=== PATIENT | female | born 1985 | race Caucasian/White ===

== ENCOUNTER → 2020-12-29 16:14 | Outpatient (CLI) | payer OTHER, SELFPAY ==
--- NOTE | ~2020-12-29 | MM_ITS ---
EXAMINATION: MM screening edna BI w ivon HISTORY: Screening mammogram TECHNIQUE: Craniocaudal and mediolateral oblique 3-D tomosynthesis images were obtained and synthetic 2-D images were generated. CAD analysis was submitted and interpreted. COMPARISON: No prior mammogram is available for comparison at this institution. BREAST PARENCHYMAL COMPOSITION: There are scattered areas of fibroglandular density. FINDINGS: Benign-appearing axillary tail lymph nodes. There is no evidence of suspicious mass, calcif ication, or architectural distortion to suggest malignancy in either breast. There has been no suspic ious interval change. IMPRESSION: 1. No mammographic evidence of malignancy. 2. Recommend routine screening mammography in one year. BI-RADS Category 2: Benign finding(s). Reviewed, dictated and finalized at location A.
== END ==
PROVIDERS: Visit Provider Surgery Plastic and Reconstructive Surgery
DX: Z12.31 Encounter for screening mammogram for malignant neoplasm of breast (principal)
CPT/HCPCS: 77063; 77067

== ENCOUNTER → 2021-02-26 02:56 | Outpatient (CLI) | payer OTHER, SELFPAY ==
[2021-02-26 19:24] LABS: SARS-CoV-2 RNA PCR Negative
== END ==
PROVIDERS: PCP Physician Assistant; Visit Provider Surgery Plastic and Reconstructive Surgery
DX: R68.89 Other general symptoms and signs (principal); Z20.822 Contact with and (suspected) exposure to COVID-19
CPT/HCPCS: C9803; U0003; U0005

== ENCOUNTER → 2021-06-11 02:47 | Outpatient (CLI) | payer OTHER, SELFPAY ==
[2021-06-11 11:30] LABS: SARS-CoV-2 RNA PCR Negative
== END ==
PROVIDERS: PCP Physician Assistant; Visit Provider Surgery Plastic and Reconstructive Surgery
DX: Z01.812 Encounter for preprocedural laboratory examination (principal); Z20.822 Contact with and (suspected) exposure to COVID-19
CPT/HCPCS: C9803; U0003; U0005

== ENCOUNTER 2021-06-14 01:00 | Day surgery (SDC) | payer OTHER, SELFPAY ==
[2021-06-05 14:03] VITALS: BMI 27.9
--- NOTE | 2021-06-05 14:13 | PC.NURSE ---
Report to the Outpatient Waiting Room, entrance under the green pavilion located off [facility], at time 0600 on date 06/14/21. OR Time: 0730. - You and your visitor will be asked a series of questions to screen for COVID 19 for your protection. - A mask is required within the hospital. One visitor will be allowed to accompany the patient into the hospital. Patients visitor will be instructed to remain with patient at all times or leave the building. We will allow the visitor to come back to the postoperative area when patient is ready. Preoperative COVID Testing Requirements: COVID TEST 06/11 AT 0730 No COVID Test needed if: (proof is required; if not received patient will have Rapid Test prior to entry) - Patient has received COVID Vaccine at least 14 days prior to procedure date or - Patient has positive COVID test result within last 90 days of surgery date. COVID Test needed if above criteria is not met If not COVID vaccinated a COVID test must be conducted within 72 hours of surgery and patient is asked to isolate self from time of testing until procedure. You will go to the [facility] for your COVID testing. The [facility] site is located at the corner of [address] [facility]. You will only be called if COVID results are positive and your surgeon may reschedule your elective surgery date. Patients may have clear liquids (water, carbonated beverages, clear teas, apple juice) until 3 hours prior to surgery with a maximum of 20 ounces. - No food from midnight until time of surgery Take the following medications with a SIP of water the morning of surgery: THYROID Medications to discontinue per physician: VITAMINS/SUPPLEMENTS Date to take last dose: 06/10/21 Please no make-up, nail salvadorean, hairspray, perfume, deodorant, or body powder the day of surgery. No jewelry (including any body piercings) or valuables the day of surgery, leave them at home. Please take a shower or bath the night before, or the morning of, surgery with an antibacterial soap. Wear comfortable, loose fitting clothing. - Jewelry must be removed prior to entering the operating room. Rings and piercings that are not removed may be cut off. - The hospital will not accept responsibility for valuables. - Please leave all valuables, including medications, at home the day of surgery. If you are going home after surgery, a licensed tank driver must drive you home. - NO public transportation without another adult. - We recommend that an adult stay with you for 24 hours following discharge. - We also recommend that you do not drive, make important decision, drink alcoholic beverages, or take any drugs that were not prescribed by your health care provider for at least 24 hours after your discharge time. Follow any additional instructions given to you from your surgeon. Telephone instructions given to JUAN MARTÍNEZ and asked if any additional questions and then verbalized understanding. Patient advised to call surgeon office or pre surgery nurse liaison [phone] if any additional questions.
[2021-06-14] VITALS (7 sets, daily range): BP systolic 115–128; BP diastolic 72–81; PULSE 73–102; RESP 10–20; TEMP 36.1–36.9; O2SAT 98–100
--- NOTE | 2021-06-14 06:01 | W.PM.PROC2 ---
Procedure Note - Detailed Date of Procedure 06/14/21 Pre-op Diagnosis Bilateral Breast Ptosis Post-op Diagnosis Same Procedure Performed Bilateral mastopexy with Galaflex Surgeon Boy Sharp MD Anesthesia General Findings Inverted T Superior medial pedicle Description of Procedure Preoperatively the risks, benefits, alternatives were discussed in extensive detail. I want her to be very realistic about the risks involved as well as expectations. I was very careful and aware to treat her as any other patient ensuring a complete thorough conversation and evaluation. I made sure answered all of her questions to her satisfaction. She voiced clear understanding. Consent obtained. She was marked in the preoperative holding area with her verification. She was taken to the operating room placed supine on operating room table. Anesthesia was provided by anesthesiology and she was prepped and draped in the standard sterile fashion. Surgical time-out was taken. Stab incisions were made tumescent completed with low volume of tumescent solution. Breast was tailor tacked into position and I placed her in a sitting position to verified my markings. Marked out the new nipple-areolar complex at 42 mm Based on preoperative markings, observations, and intraoperative measurements which were in full agreement. She was then placed supine. The nipple-areolar complex was marked at 42 mm. I de-epithelialized the pedicle. Made the remainder of the incisions and de-epithelialized the inferior pole of the breast which was going to be used for an auto augmentation flap. Slight volume adjustment of autoaugmentation flap to improve symmetry based on pre-operative analysis and discussion. Elevated the breast as necessary for exposure. Copiously irrigated with saline solution and verified strict hemostasis. I tailor tacked the auto augmentation flap to the chest wall using a 2-0 PDS. I then trimmed and tailor tacked the Galaflex to support the lower pole of the breast using a 2-0 Vicryl. I closed along the IMF using an 0 strata fix. Along the vertical pedicle using 2-0 PDS. I closed around the areola with 3-0 strata fix, the vertical with 3-0 Monocryl, and the IMF with 3-0 strata fix. Final closure was using running subcuticular 4-0 Monocryl and Steri-Strips. The end of the procedure she had good color and capillary refill. She was awoken taken to the PACU without difficulty. All instrument sponge counts were correct at the end of the case. Estimated Blood Loss 50 Drains No Packing No Pathology None sent Complications No immediate complications Condition Stable Disposition PACU
[2021-06-14 06:29] LABS: Urine Cotinine NEGATIVE
[2021-06-14] MEDS: LACTATED RINGERS 1,000 ML 30 ML IV CONT ×2 (06:30→10:28)
--- NOTE | 2021-06-14 07:03 | WPDHPUPDATE1 ---
History and Physical Update Update Date/Time: 06/14/21 07:03 History and Physical has been reviewed, including an updated exam of the patient. There are NO changes in the patient's condition. Risks, benefits, and alternatives have been discussed and questions answered. Patient agrees to proceed with procedure.
--- NOTE | 2021-06-14 07:12 | P.PNAN_ITS ---
Anes - Initial Pre Proc Eval Procedure: Operation Date: 06/14/21 07:30 Proposed Procedures p Bilateral Breast Mastopexy with Galaflex - Boy Sharp MD Date/Time: 06/14/21 07:12 Surgeon: Boy Sharp MD Pre Op Diagnosis: Bilateral Breast Ptosis Patient Data Age: 36 Gender: F Height: 1.55 m Weight: 67.13 kg Allergies Allergy/AdvReac Type Severity Reaction Status Date / Time No Known Allergies Allergy Verified 06/14/21 06:23 Home Medications Medication Instructions Recorded Confirmed Type cetirizine [Zyrtec] 10 mg PO DAILY 06/05/21 06/14/21 History multivitamin 1 tablet PO DAILY 06/05/21 06/14/21 History prasterone (dhea)-calcium carb 1 tablet PO HS 06/05/21 06/14/21 History [DHEA] progesterone micronized 150 mg PO HS 06/05/21 06/14/21 History thyroid (pork) [[place] Thyroid] 60 mg PO DAILY 06/05/21 06/14/21 History docusate sodium 100 mg capsule 100 mg PO DAILY #14 cap 06/12/21 06/14/21 Rx hydrocodone 5 mg-acetaminophen 325 1 tablet PO Q6H PRN #30 tablet 06/12/21 06/14/21 Rx mg tablet ondansetron 4 mg disintegrating 4 mg PO Q8H #30 tablet 06/12/21 06/14/21 Rx tablet Laboratory Tests 06/14/21 06:14 Cotinine Negative Patient hx anesthesia problems: post op nausea/vomiting Family hx anesthesia problems: none Results Review: All pre-operative results and documents have been reviewed as part of the pre-operative evaluation. [facility] Past Medical History Medical History Hypothyroid Family History Family History Father Hypertension Family history of gastrointestinal disorder Family history of elevated blood lipids Grandparent Hypertension Family history of elevated blood lipids Family history of alcoholism Family history of cardiovascular disease Family history of atrial fibrillation Mother Patient's mother is in good health Social History Social History Smoking status: Former smoker Alcohol intake: current Drinks per week: 2 Substance use: never Substance use type: does not use Living arrangements: with family Spiritual care concerns: No Anes - Eval Final PreProcedure Day of Procedure 06/14/21 07:12 Patient weight: overweight Heart: regular rate and rhythm Lungs: clear to auscultation Airway: Mallampati scale class II Neurological: alert and oriented Last oral intake: >/= 8 hours ASA classification: II Emergent: no Anesthetic plan: proceed Anesthesia type and monitoring: general LMA and standard monitoring Results Review: All pre-operative results and documents have been reviewed as part of the pre-operative evaluation. Informed Consent: The patient's anesthetic plan and its attendant risks and benefits were discussed with the patient/family/POA. Questions were solicited and answers provided to the satisfaction of the patient/family/POA.
[2021-06-14] MEDS: SCOPOLAMINE 1.5 MG PATCH TRANSDERM (07:16)
--- NOTE | 2021-06-14 07:18 | PM.IMHP ---
H&P: HPI History of Present Illness Date/Time: 06/14/21 07:18 She is here today for bilateral breast mastopexy with Galaflex. She has had the opportunity to review consents. She would like proceed. Chief Complaint: Breast ptosis Review of Systems Review of Systems: All systems reviewed & are unremarkable except as noted in HPI and below PMFSH Past Medical History Medical History Hypothyroid Family History Family History Father Hypertension Family history of gastrointestinal disorder Family history of elevated blood lipids Grandparent Hypertension Family history of elevated blood lipids Family history of alcoholism Family history of cardiovascular disease Family history of atrial fibrillation Mother Patient's mother is in good health Social History Social History Smoking status: Former smoker Alcohol intake: current Drinks per week: 2 Substance use: never Substance use type: does not use Living arrangements: with family Spiritual care concerns: No Meds Home Medications and Allergies Home Medications Medication Instructions Recorded Confirmed Type cetirizine [Zyrtec] 10 mg PO DAILY 06/05/21 06/14/21 History multivitamin 1 tablet PO DAILY 06/05/21 06/14/21 History prasterone (dhea)-calcium carb 1 tablet PO HS 06/05/21 06/14/21 History [DHEA] progesterone micronized 150 mg PO HS 06/05/21 06/14/21 History thyroid (pork) [[place] Thyroid] 60 mg PO DAILY 06/05/21 06/14/21 History docusate sodium 100 mg capsule 100 mg PO DAILY #14 cap 06/12/21 06/14/21 Rx hydrocodone 5 mg-acetaminophen 325 1 tablet PO Q6H PRN #30 tablet 06/12/21 06/14/21 Rx mg tablet ondansetron 4 mg disintegrating 4 mg PO Q8H #30 tablet 06/12/21 06/14/21 Rx tablet Allergies Allergy/AdvReac Type Severity Reaction Status Date / Time No Known Allergies Allergy Verified 06/14/21 06:23 Exam Narrative: Bilateral breast ptosis. Const: General: comfortable, no acute distress, alert and awake; No acute distress Orientation/consciousness: oriented to person HENMT: Head: normal to inspection Ears: external ears normal General nose exam: Normal external nose present Face and sinus: normal facial exam Eyes: General: appearance normal, both eyes and all related structures Periorbital: periorbital findings normal Eyelids: eyelids normal Conjunctivae: conjunctivae normal Neck: Neck: normal visual inspection Chest: Chest palpation & inspection: normal inspection of the chest Resp: Effort & Inspection: normal respiratory effort and able to speak in complete sentences GI: Inspection: normal to inspection Neuro: General: oriented to person Psych: Appearance: grossly normal Mental Status: mental status grossly normal Assessment and Plan Assessment and plan (1) Breast ptosis: Code(s): N64.81 - Ptosis of breast Status: Acute Assessment and Plan: She would like proceed with bilateral breast mastopexy with Galaflex. Again today the risks, benefits, alternatives were discussed in extensive detail. I want her and her be very realistic about the risks involved as well as expectations. Made sure answered all of their questions to their satisfaction. Consent obtained. They would like proceed.
[2021-06-14] MEDS: ceFAZolin 2 GM/D5W 50 ML 2 GM/50 ML BAG IVPB (07:28)
[2021-06-14] MEDS: TRANEXAMIC ACID 1,000MG/ISO100 1,000 MG/100 ML BAG 200 MG IVPB (07:41)
[2021-06-14] MEDS: NACL 0.9% IRRIG POUR BOTTLE 900 ML, GENTAMICIN SULFATE INJ 160 MG, ceFAZolin 2 GM, POVI... IRRIGATION (07:57)
[2021-06-14] MEDS: BUPIVACAINE HCL 0.25% PF 30 ML VIAL INFILTRATE (07:58)
[2021-06-14] MEDS: LIDO 1%/EPINEPHRINE 1:100,000 50 ML VIAL INFILTRATE (07:59)
[2021-06-14] MEDS: oxyCODONE HCL (*CRX) 5 MG TAB IR PO (11:23)
== END 2021-06-14 12:06 | disposition home or self-care (01) ==
PROVIDERS: PCP Physician Assistant; Visit Provider Surgery Plastic and Reconstructive Surgery
PROC: (CPT 19316; principal; 2021-06-14 07:30)
DX: Z41.1 Encounter for cosmetic surgery (principal); N64.81 Ptosis of breast; E03.9 Hypothyroidism, unspecified; Z79.899 Other long term (current) drug therapy; Z87.891 Personal history of nicotine dependence
CPT/HCPCS: 19316; 15777 ×2; 80307; A9270; J0690; J1100; J1170; J1580; J2250; J2704; J2710; J3010; J7120

== ENCOUNTER → 2021-12-07 16:54 | Outpatient (CLI) | payer OTHER, SELFPAY ==
--- NOTE | ~2021-12-07 | MR_ITS ---
EXAMINATION: MR shoulder LT wo con DATE: 12/07/2021 17:37 INDICATION: Left shoulder pain. TECHNIQUE: Magnetic resonance imaging (MRI) of the left shoulder was performed without intravenous co ntrast. Sequences included axial PD-weighted FS FSE, coronal oblique PD-weighted FS FSE and T2-weight ed FS FSE, and sagittal oblique T2-weighted FS FSE and T1-weighted FSE. COMPARISON: None. FINDINGS: Coracoacromial arch: The acromion undersurface is flat in morphology (type I). There is mild acromioclavicular joint osteo arthritis. There is a physiologic volume of fluid in subacromial/subdeltoid bursa. Rotator cuff: There is mild supraspinatus and infraspinatus tendinopathy. Teres minor tendon is normal. Subscapular is tendon is normal. No tear. There is no asymmetric fatty atrophy of the rotator cuff muscle bellies . Biceps tendon and glenoid labrum: Biceps tendon is in bicipital groove. Intra-articular biceps tendon is normal. The glenoid labrum is normal. Fluid: There is no glenohumeral joint effusion. Bones/cartilage: Glenoid cartilage is normal. Humeral head cartilage is normal. IMPRESSION: 1. Mild rotator cuff tendinopathy. No tear. 2. Mild acromioclavicular joint osteoarthritis. Reviewed, dictated and finalized at location A.
== END ==
PROVIDERS: PCP Orthopaedic Surgery; Visit Provider Orthopaedic Surgery
DX: M19.012 Primary osteoarthritis, left shoulder (principal)
CPT/HCPCS: 73221